=== PATIENT | female | born 2000 | race Two or more races ===

== ENCOUNTER 2020-06-14 08:05 | Emergency (ER) | payer OTHER ==
[~2020-06-14] VITALS: Ht 154.9 cm; Wt 70.3 kg
[2020-06-14] MEDS ORDERED: LORAZEPAM INJ 2 MG/ML VIAL ONE (08:24)
[2020-06-14] MEDS ORDERED: HALOPERIDOL LACTATE INJ 5 MG/ML VIAL ONE (08:28)
[2020-06-14] MEDS ORDERED: HALOPERIDOL LACTATE INJ 5 MG/ML VIAL IM ONE (08:30)
[2020-06-14] MEDS ORDERED: LORAZEPAM INJ 2 MG/ML VIAL IM ONE (08:30)
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
--- NOTE | 2020-06-14 10:15 | NUR ---
PT SLEEPING SOUNDLY RESP EVEN UNLABORED
--- NOTE | 2020-06-14 19:09 | NUR ---
ASSUMED CARE. PT ASLEEP, AROUSABLE TO PAINFUL STIMULI, NO ACUTE DISTRESS NOTED, RESP EVEN AND UNLABORED. NO PAIN OR DISCOMFORT NOTED. CALL LIGHT WITHIN REACH. WILL CONTINUE TO MONITOR PT CLOSELY. 1:1 SITTER AT BEDSIDE FOR PT SAFETY.
--- NOTE | 2020-06-14 22:34 | NUR ---
PT AAOX4 NO ACUTE DISTRESS NOTED, RESP EVEN AND UNLABORED. FOOD TRAY PROVIDED TO PT REQUESTED. PT DENIES PAIN OR DISCOMFORT AT THIS TIME. PT DENIES SI/HI.
[2020-06-15 00:56] VITALS: BP 135/68
--- NOTE | 2020-06-15 00:56 | NUR ---
Note omid in EDM - 06/15/20 at 0100 by PEÑA Patient discharged to home in stable condition. Written and verbal after care instructions given. Patient verbalizes understanding of instruction. ambulatory with a steady gait noted. pt aaox4 no acute distress noted, resp even and unlabored. pt denies being homeless and states "i'm not homeless, i probably have a nicer house than you".
--- NOTE | 2020-06-15 00:56 | NUR ---
Patient discharged to home in stable condition. Written and verbal after care instructions given. Patient verbalizes understanding of instruction but refused to sign ACI. ambulatory with a steady gait noted. pt aaox4 no acute distress noted, resp even and unlabored. pt denies being homeless and states "i'm not homeless, i probably have a nicer house than you".
--- NOTE | 2020-06-15 00:56 | NUR ---
Eladia anne in ED - 06/15/20 at 0059 by LUCIANO Patient discharged to home in stable condition. Written and verbal after care instructions given. Patient verbalizes understanding of instruction. Pt refused to sign.
== END 2020-06-15 00:56 | disposition home or self-care (01) ==
LOC: ER 08:07
DX: R45.1 Restlessness and agitation (principal); F15.10 Other stimulant abuse, uncomplicated; R00.0 Tachycardia, unspecified; V49.59XA Passenger injured in collision with other motor vehicles in traffic accident, initial encounter; Y93.89 Activity, other specified; Y92.488 Other paved roadways as the place of occurrence of the external cause; Y99.8 Other external cause status
CPT/HCPCS: 96372 ×2; 99285; J1630; J2060